=== PATIENT | female | born 1945 | race Caucasian/White ===

== ENCOUNTER 2016-09-30 23:57 | Emergency (ER) | payer MEDICARE, OTHER ==
--- NOTE | ~2016-09-30 | CR63 ---
[facility] A Service of [facility] RADIOLOGY TEXT RESULTS PATIENT: MILLIE RAMIREZ LOCATION: SED : 49 UNIT #: [id number] AGE: [address]: NEHA ANDRADE SEX: F ORDER DR: [id number] [place] [id number] E MR#: [id number] Acc #: [id number] NAME: MILLIE RAMIREZ : 1945 SEX: F STUDY DATE/TIME: 10/01/2016 0:44 UNIT: SED ROOM: STUDY DESCRIPTION: CR Chest 2 View Attending Physician: Neha Andrade Ordering Physician: Physician Non-Staff Primary Care Physician: Harman More MEDICAL IMAGING REPORT This report is preliminary unless electronic signature is present. EXAM 2-view chest INDICATION Productive cough for the past 3 days. PROCEDURE Frontal and lateral views of the chest. COMPARISON 05/30/2015 FINDINGS Heart size is normal. No dense consolidation, effusion or pneumothorax. IMPRESSION No active process. Dictated by... Jose J Menendez M.D. THIS IS AN ELECTRONICALLY VERIFIED REPORT Jose J Menendez M.D. at 10/01/2016 10:22 PM EED/fahad TD: 10/01/2016 03:05 JOB #: [id number] MEDICAL IMAGING REPORT [facility] A Service of [facility] RADIOLOGY TEXT RESULTS PATIENT: MILLIE RAMIREZ LOCATION: SED : 47 UNIT #: [id number] AGE: [address]: NEHA ANDRADE SEX: F ORDER DR: Page 1 of 1
[~2016-09-30 23:57] MED LIST: AFRIN3 ML; BENADRYL25 MG PO; FUROSEMIDE40 MG; GLUCOPHAGE500 MG; LEVOTHYROXINE175 MCG; NAPHCON-A EYE D15 M1 OU; PHENERGAN; PHENERGAN W/CODIENE PO; POTASSIUM CHLO10 ME1; PRAMIPEXOLE D0.25 MG; PREDNISONE; TYLENOL EXTRA500 M1; ZIAGEN300 M1; ZITHROMAX PO
== END 2016-10-01 01:30 | disposition home or self-care (01) ==
LOC: SED 23:57
DX: J44.1 Chronic obstructive pulmonary disease with (acute) exacerbation (principal); B34.9 Viral infection, unspecified; E11.9 Type 2 diabetes mellitus without complications; Z90.710 Acquired absence of both cervix and uterus; Z90.49 Acquired absence of other specified parts of digestive tract; Z79.899 Other long term (current) drug therapy
CPT/HCPCS: 71020; 94640; 99284